=== PATIENT | female | born 2005 | race Two or more races ===

== ENCOUNTER 2024-10-26 19:23 | Emergency (ER) | payer MEDICAID, SELFPAY ==
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
[2024-10-26 19:50] LABS: Basophils # (Auto) 0.0 Thou/mm3 (0.0-0.2); Basophils % (Auto) 0 % (0-2.5); Eosinophils # (Auto) 0.0 Thou/mm3 (0.0-0.5); Eosinophils % (Auto) 0 % (0-10); Hematocrit 40.7 % (36.0-46.0); Hemoglobin 13.9 g/dL (12.0-16.0); Immature Granulocytes Auto 0.02 Thou/mm3 (0.00-0.00); Lymphocytes # (Auto) 1.1 Thou/mm3 (1.0-4.8); Lymphocytes % (Auto) 11 % (10-50); Mean Corpuscular HGB Conc 34.2 g/dl (31.0-37.0); Mean Corpuscular Hemoglobin 31.4 pg (25.0-35.0); Mean Corpuscular Volume 92 fL (80-100); Monocytes # (Auto) 0.8 Thou/mm3 (0.0-0.8); Monocytes % (Auto) 8 % (0-12); Neutrophils # (Auto) 8.1 Thou/mm3 (1.8-7.7); Neutrophils % (Auto) 81 % (37-80); Nucleated Red Blood Cell # 0.00 Thou/mm3 (0.00-0.00); Nucleated Red Blood Cell % 0 /100 WBC (0); Platelet Count 207 Thou/mm3 (140-440); RDW Standard Deviation 40.2 fL (36.4-46.3); Red Blood Count 4.43 Miln/mm3 (4.00-5.20); White Blood Count 10.0 Thou/mm3 (3.6-11.0)
--- NOTE | 2024-10-26 20:00 | PC.NURSE ---
pt angerly refuses to answer any questions. unable to do suicide scale.
[2024-10-26 20:15] LABS: Acetaminophen < 2.0 mcg/mL (10.0-20.0); Alanine Aminotransferase 15 U/L (10-49); Albumin, Serum 5.3 gm/dL (3.5-5.0); Albumin/Globulin Ratio 2.0 (1.2-2.2); Alcohol, Blood Medical < 3.0 mg/dL (0-10.0); Alkaline Phosphatase 70 U/L (46-116); Anion Gap 13 (7-16); Aspartate Amino Transferase 19 U/L (0-34); BUN/Creatinine Ratio 7 Ratio (12-20); Bilirubin,Direct 0.2 mg/dL (0.0-0.3); Bilirubin,Total 0.7 mg/dL (0.3-1.2); Blood Urea Nitrogen 8 mg/dL (9-23); Calcium 10.3 mg/dL (8.3-10.6); Calcium (Corrected) 10.3 mg/dL (8.5-10.1); Carbon Dioxide 21.8 mMol/L (20.0-31.0); Chloride 110 mMol/L (98-107); Creatinine (Component) 1.1 mg/dL (0.6-1.3); Free T4 (Free Thyroxine) 1.18 ng/dL (0.89-1.76); Globulin 2.7 gm/dL (2.3-3.5); Glucose 208 mg/dL (74-106); Magnesium 2.3 mg/dL (1.6-2.6); Osmolality,Calculated 293 (275-295); Potassium 3.6 mMol/L (3.4-5.1); Salicylate < 3.0 mg/dL; Sodium 145 mMol/L (136-145); Thyroid Stimulating Hormone 1.83 uIU/mL (0.55-4.78); Total Protein 8.0 gm/dL (5.7-8.2); eGFR > 60 See Note
[2024-10-26 20:22] LABS: HCG,Qualitative Serum Negative
--- NOTE | 2024-10-26 20:36 | PC.NURSE ---
any attempt to speak with pt, she talks over me saying she doesnt want to here it.
[2024-10-26 22:53] VITALS: BP 124/88; PULSE 106; RESP 19; TEMP 36.6; O2SAT 97; BMI 23.0
[2024-10-26] MEDS: HALOPERIDOL LACT INJ 5 MG/ML VIAL IV (23:28)
--- NOTE | 2024-10-26 23:44 | PC.NURSE ---
report was called to Pari TOBAR. pt taken to rm on interpersonal communications professor by myself.
[2024-10-27] VITALS (7 sets, daily range): BP systolic 108–125; BP diastolic 68–83; PULSE 84–124; RESP 15–19; TEMP 36.4–37.1; O2SAT 98–100; BMI 24.0
--- NOTE | 2024-10-27 06:55 | PD.EDADDENDU ---
Emergency Room Addendum Addendum Narrative: 0600: Care assumed from Dr. Wong, the previous shift emergency physician. Past medical, surgical, social and family history reviewed. Vitals and home medications reviewed. I will assume the care of the patient at this time, pending UDS for medical clearance for mental health evaluation. Please refer to the emergency department record for history and examination from initial visit.?The following addendum documentation note is intended to reflect any pending information, findings, or radiology results not included in the patient?s initial chart. 1050: Urine toxicology is negative. Patient is medically cleared for mental health evaluation. 1155: Mother reports child is not safe to go home adding she has had frequent violent outbursts. Patient will be placed on a 5150 hold and at this time pending [facility] facility placement. Patient has been accepted by Dr. Martinez at [facility]. EMS p/u at 18:00 hours.
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
--- NOTE | 2024-10-27 07:16 | PC.NURSE ---
PT SLEPPED THROUGH THE NIGHT AFTER MEDS GIVEN. SIUTTER WITH PT . NO PROBLEMS.
--- NOTE | 2024-10-27 08:56 | PC.NURSE ---
SPOKE TO PT'S MOTHER, THIAGO NICHOLE; PER MOTHER, SHE WAS DIAGNOSED WITH SCHIZOPHRENIA, BIPOLAR AND DEPRESSION. SHE WAS TAKING HER MEDICATIONS UNTIL ABOUT A WEEK AND A HALF AGO; SHE KEPT GETTING WORSE. SHE DID NOT LISTEN TO ME WHEN I TRIED TO TELL HER TO TAKE HER MEDS. I WILL VISIT HER TODAY.
[2024-10-27 09:27] LABS: Amphetamine/Methamp Scrn,U Negative (Negative); Barbiturate Screen,Urine Negative (Negative); Benzodiazepines Screen,Urine Negative (Negative); Benzoylecgonine Screen, Ur Negative (Negative); Fentanyl Screen,Urine Negative (Negative); Opiate Screen,Urine Negative (Negative); THC Screen,Urine Negative (Negative)
--- NOTE | 2024-10-27 14:10 | PC.CC ---
Addendum entered by Emy Doe 10/27/24 18:15: 1410 Patient was provided with patient's rights handbook. Original Note: Patient was accepted to [facility] [address], accepting provider is Eric De León provided accepting information. PATIENT SERVICES ASSISTANT, Emy provided accepting information to the patient and made telephone contact with patient's mother, Deepthi to inform her of accepting information. PATIENT SERVICES ASSISTANT, provided update to medical team. PATIENT SERVICES ASSISTANT to arrange transportation.
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
--- NOTE | 2024-10-27 16:05 | PC.NURSE ---
PER TIMBER GIRDLER, YOLANDE, I ALREADY SPOKE TO [facility]; PT IS ACCEPTED TO THEIR FACILITY. NO NEED TO CALL FOR REPORT.
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
--- NOTE | 2024-10-27 17:49 | PC.NURSE ---
SBAR REPORT GIVEN TO [facility] BULK STATION OPERATOR AT BEDSIDE.
== END 2024-10-27 18:00 ==
PROVIDERS: Emergency Medicine; Emergency Provider Emergency Medicine
DX: Z04.6 Encounter for general psychiatric examination, requested by authority (principal); R45.6 Violent behavior; F20.9 Schizophrenia, unspecified; Z78.1 Physical restraint status; Z75.1 Person awaiting admission to adequate facility elsewhere
CPT/HCPCS: 36415; 80053; 80307; 80320; 80329; 82248; 83735; 84439; 84443; 84703; 85025; 96127; 96374; 99284; J1200; J1630; G0480

== ENCOUNTER 2024-12-25 07:58 | Emergency (ER) | payer MEDICAID, SELFPAY ==
[2024-12-25 08:14] VITALS: BP 122/87; PULSE 93; RESP 18; TEMP 37.1; O2SAT 98
[2024-12-25 08:52] VITALS: BMI 24.0
[2024-12-25 09:10] LABS: Basophils # (Auto) 0.0 Thou/mm3 (0.0-0.2); Basophils % (Auto) 1 % (0-2.5); Eosinophils # (Auto) 0.0 Thou/mm3 (0.0-0.5); Eosinophils % (Auto) 1 % (0-10); Hematocrit 36.7 % (36.0-46.0); Hemoglobin 12.6 g/dL (12.0-16.0); Immature Granulocytes Auto 0.02 Thou/mm3 (0.00-0.00); Lymphocytes # (Auto) 1.6 Thou/mm3 (1.0-4.8); Lymphocytes % (Auto) 22 % (10-50); Mean Corpuscular HGB Conc 34.3 g/dl (31.0-37.0); Mean Corpuscular Hemoglobin 31.4 pg (25.0-35.0); Mean Corpuscular Volume 92 fL (80-100); Monocytes # (Auto) 0.6 Thou/mm3 (0.0-0.8); Monocytes % (Auto) 9 % (0-12); Neutrophils # (Auto) 4.9 Thou/mm3 (1.8-7.7); Neutrophils % (Auto) 68 % (37-80); Nucleated Red Blood Cell # 0.00 Thou/mm3 (0.00-0.00); Nucleated Red Blood Cell % 0 /100 WBC (0); Platelet Count 200 Thou/mm3 (140-440); RDW Standard Deviation 40.3 fL (36.4-46.3); Red Blood Count 4.01 Miln/mm3 (4.00-5.20); White Blood Count 7.3 Thou/mm3 (3.6-11.0)
[2024-12-25 09:12] LABS: HCG Qualitative,Urine Negative
[2024-12-25 09:31] LABS: Alanine Aminotransferase 11 U/L (10-49); Albumin, Serum 4.5 gm/dL (3.5-5.0); Albumin/Globulin Ratio 2.0 (1.2-2.2); Alkaline Phosphatase 62 U/L (46-116); Anion Gap 7 (7-16); Aspartate Amino Transferase 14 U/L (0-34); BUN/Creatinine Ratio 7 Ratio (12-20); Bilirubin,Total 1.0 mg/dL (0.3-1.2); Blood Urea Nitrogen 5 mg/dL (9-23); Calcium 9.2 mg/dL (8.3-10.6); Calcium (Corrected) 9.2 mg/dL (8.5-10.1); Carbon Dioxide 23.8 mMol/L (20.0-31.0); Chloride 109 mMol/L (98-107); Creatinine (Component) 0.7 mg/dL (0.6-1.3); Estimated Creatinine Clearance 109.8 mL/min (>60); Globulin 2.3 gm/dL (2.3-3.5); Glucose 131 mg/dL (74-106); Osmolality,Calculated 278 (275-295); Potassium 3.8 mMol/L (3.4-5.1); Sodium 140 mMol/L (136-145); Total Protein 6.8 gm/dL (5.7-8.2); eGFR > 60 See Note
[2024-12-25 09:54] LABS: Alcohol, Urine Negative (Negative); Amphetamine/Methamp Scrn,U Negative (Negative); Barbiturate Screen,Urine Negative (Negative); Benzodiazepines Screen,Urine Negative (Negative); Benzoylecgonine Screen, Ur Negative (Negative); Fentanyl Screen,Urine Negative (Negative); Opiate Screen,Urine Negative (Negative); THC Screen,Urine Negative (Negative)
--- NOTE | 2024-12-25 09:58 | PD.EDPSYCH ---
ED Psych RME/HPI General Chief Complaint: Psychiatric Symptoms Stated Complaint: PSYCH SYMPTOMS Arrival date/time: 12/25/24 07:58 RME / HPI RME / HPI Narrative: 19-year-old female brought in by mother for evaluation of psychiatric complaint. Mother notes that patient had an admission for manic episode last year for about a week. Then a couple months ago she had a medication mixup where she was accidentally given Keppra and ended up becoming psychotic. Was admitted for a couple of weeks at that time. Is currently being weaned down on her Seroquel. For the last 4 days mother notes that she has had increasing visual and auditory hallucinations, episodes of aggression at home, decreased sleep, scattered thinking. Patient herself frequently answers I do not know to questions. Is unknown sure why she is here or what is happening saying that her thoughts are scattered. Related Data Home Medications ?Medication ?Instructions ?Recorded ?Confirmed lamotrigine 25 mg tablet 25 mg PO Q12H 10/27/24 10/27/24 quetiapine 50 mg tablet 50 mg PO QDAY 10/27/24 10/27/24 Previous Rx's ?Medication ?Instructions ?Recorded sulfamethoxazole 800 1 tab PO BID #14 tabs 09/21/20 mg-trimethoprim 160 mg tablet (Bactrim DS) ibuprofen 600 mg tablet 600 mg PO Q6H #30 tabs 12/08/22 Allergies Allergy/AdvReac Type Severity Reaction Status Date / Time levetiracetam (From Keppra) Allergy Anaphylaxis Verified 12/25/24 08:54 Review of Systems Review of Systems Systems Reviewed: All systems reviewed, normal except as documented Past Medical History Past Medical History PSYCHO/SOCIAL: Positive Schizophrenia, Bipolar Disorder and Depression Social History SMOKING STATUS: Never smoker Past Medical History Comments PMH COMMENT: Mental health disorder ED Exam Narrative Physical exam: Constitutional: Awake, alert, nontoxic, somewhat anxious. HEENT: Normocephalic, atraumatic, extraocular movements intact. Neck: Supple CV: Regular rate and rhythm, no murmurs/rubs/gallops Lungs: Clear to auscultation BL, no respiratory distress. Abd: Soft, ND, no HSM noted to palpation, mild tenderness to palpation of suprapubic region. No rebound or guarding noted. Neuro: AAOx2, CN 2-12 GIBL, no acute neuro deficit noted. Skin: Warm, dry, intact Course Course Course Narrative: 1000h: 19-year-old female brought in by mother for evaluation of possible psychosis. Does have increased visual and auditory hallucinations recently as well as scattered thoughts, and episodes of aggression at home per mother. History of similar in the past. Will check labs and consult social services counselor. 1245h: Patient has been evaluated by social services counselor and [facility] who have placed the patient on a 5585 hold, pending [facility] facility placement. 1345h: Patient has been accepted by Dr. Fishman at [facility]. Quality Measures none Orders Category Date Time Status Consult Recyclable Materials Collector NOW Care 12/25/24 09:58 Active Alcohol, Urine Stat Lab 12/25/24 08:50 Completed CBC Stat Lab 12/25/24 08:45 Completed CMP [Comprehensive Metabolic Panel] Stat Lab 12/25/24 08:45 Completed Drug Screen,Urine Stat Lab 12/25/24 08:50 Completed HCG Qualitative,Urine Stat Lab 12/25/24 08:50 Completed Ziprasidone [Geodon] Med 12/25/24 13:02 Discontinued 20 mg PO X1 ONE Vital Signs Vital signs: Vital Signs Temperature 98.7 F 12/25/24 08:14 Pulse Rate 93 12/25/24 08:14 Respiratory Rate 18 12/25/24 08:14 Blood Pressure 122/87 H 12/25/24 08:14 Pulse Oximetry (%) 98 12/25/24 08:14 Oxygen Delivery Method Room Air 12/25/24 08:14 Pulse ox is 98% on room air which is adequate. Psych Patient data External records reviewed:: [facility] previous records Clinical information provided by:: patient and parent Social determinants that could affect healthcare access:: mental health Patient has the following chronic illnesses:: Depression, anxiety How is presenting disease/condition affected by chronic disease/condition?: exacerbated by Evaluation data The following diagnostics were reviewed and interpreted by me:: lab results Lab and/or radiology exams considered but not ordered:: None Interpretation Summary: CBC and CMP are unremarkable UDS negative Medications / Prescriptions Medications or Prescriptions considered but not ordered:: None Medication administrations:: Medication Administration History Discontinued Medications Ziprasidone (Ziprasidone 20 Mg Capsule) 20 mg PO X1 ONE Stop: 12/25/24 13:03 Last Admin: 12/25/24 13:54 Dose: Not Given Documented By: [facility] Non-Admin Reason: Patient Refused See above Consultations Consultation(s) initiated? (list below): No Diagnosis Psych Differential Diagnosis: acute psychosis, bipolar disorder, depression, drug-induced psychotic disorder and acute anxiety Most likely diagnosis given after review of the tests above:: Psychosis Admission Indicated Admission indicated?: not indicated Explain why admission is indicated or not indicated:: txfer to [facility] Admission Request Was there a request for admission?: No Disposition Plan Disposition Plan: Transfer Discharge Plan Plan Patient Disposition: [facility] Discharge Disposition comment: [facility] Prescriptions/Referrals Prescriptions/Med Rec: No Action sulfamethoxazole-trimethoprim [Bactrim DS] 800-160 mg tablet 1 tab PO BID Qty: 14 0RF lamotrigine 25 mg tablet 25 mg PO Q12H Patient Comments: TAKE ONE TABLET BY MOUTH TWICE DAILY quetiapine 50 mg tablet 50 mg PO QDAY Patient Comments: TAKE ONE TABLET BY MOUTH AT BEDTIME ibuprofen 600 mg tablet 600 mg PO Q6H Qty: 30 0RF Referrals: No Primary/Family,Physician [Primary Care Provider] - In 1 week Problem List Clinical Impression: Acute psychosis Patient/Caregiver Discharge Instructions Education Materials: ED Psychosis Print Language: Hong Konger Stand Alone Forms: Mely Award Info., Patient Portal Info Letter
--- NOTE | 2024-12-25 10:03 | PC.NURSE ---
PATIENT CAME IN TO ED FOR VOLUNTARY MENTAL HEALTH EVAL. PER MOM THIAGO AT BEDSIDE PATIENT IS GOING ON HER FOURTH DAY WITHOUT SLEEPING. PATIENT HAS BEEN HALLUCINATING WELL PARANOID PER MOM. PATIENT HAS BEEN DIAGNOSED WITH SCHIZOPHRENIA AND BIPOLAR ABOUT A YEAR AGO. PATIENT ON ORAL PSYCH MEDICATION. VITALS STABLE. PATIENT WAITING FOR CRISIS EVALUATION
--- NOTE | 2024-12-25 10:45 | PC.SS ---
SS follow up note; SS contacted [facility] and they informed SS they would arrive within one hour to evaluate patient. SS updated Charge Nurse, Aleksandra and Patient's mother.
--- NOTE | 2024-12-25 12:05 | PC.NURSE ---
BRANCH CUSTOMER SERVICE REPRESENTATIVE XUAN IN TO ASSESS PATIENT. PER XUAN SHE WILL CALL MOM TO SEE IF SHE IS ABLE TO PROVIDE ADDITIONAL INFORMATION
--- NOTE | 2024-12-25 13:00 | PC.SS ---
SS follow up note; [facility] met with patient at bedside. Patient will be place on a 5150 hold SS will seek placement for patient.
--- NOTE | 2024-12-25 13:45 | PC.SS ---
SS follow up note; SS sent Clinical packet to all [facility] facilities . SS was contacted by Wyatt from [facility] and informed SS they are able to accept patient. at 1600. Nurse will need to give report at 1500. Accepting physician will be Dr. Fishman. SS will provide patient's nurse Contact number to call for report. SS contacted [facility] to set up transportation for 1500. SS notified patient's nurse Ana.
[2024-12-25 13:48] VITALS: BP 104/66; PULSE 99; RESP 18; TEMP 36.8; O2SAT 97
[2024-12-25] MEDS: ZIPRASIDONE 20 MG CAPSULE PO (14:02)
[2024-12-25 14:56] VITALS: BP 111/73; PULSE 99; RESP 16; TEMP 36.7; O2SAT 97
--- NOTE | 2024-12-25 15:09 | PC.NURSE ---
REPORT GIVEN TO DM TOBAR AT [facility].
== END 2024-12-25 15:56 ==
PROVIDERS: Nurse Practitioner Primary Care; Emergency Provider Family Medicine
DX: F23 Brief psychotic disorder (principal)
CPT/HCPCS: 36415; 80053; 80307; 80320; 81025; 85025; 96127; 99284; A9270; G0480